=== PATIENT | male | born 1975 | race Hispanic/Latino ===

== ENCOUNTER 2020-12-26 07:36 | Day surgery (SDC) | payer OTHER ==
[2020-12-26] MEDS ORDERED: Ringers Lactate 1,000 ML IV ONE (07:42)
[2020-12-26] MEDS ORDERED: LIDOCAINE 1% MPF 5 ML VIAL ONE (08:31)
[2020-12-26] MEDS ORDERED: propofoL 200 MG/20 ML VIAL IV ONE (08:31)
--- NOTE | 2020-12-26 09:10 | ENDO RPT ---
[address], [address] COLONOSCOPY PROCEDURE REPORT EXAM DATE: 12/26/2020 PATIENT NAME: Godwin Ponce MR #: [id number] BIRTHDATE: 1975 ATTENDING: Abdiel Carmichael DR STATUS: outpatient PAVER LAYER: Lolis Rodríguez RN and Evi Coronado CST INDICATIONS: The patient is a 45 yr old Male here for a colonoscopy due to colon cancer screening PROCEDURE PERFORMED: Colonoscopy with biopsy - cold polypectomy MEDICATIONS: Per Anesthesia. ESTIMATED BLOOD LOSS: None CONSENT: The patient understands the risks and benefits of the procedure and understands that these risks include, but are not limited to: sedation, allergic reaction, infection, perforation and/or bleeding. Alternative means of evaluation and treatment include, among others: physical exam, x-rays, and/or surgical intervention. The patient elects to proceed with this endoscopic procedure. DESCRIPTION OF PROCEDURE: During intra-op preparation period all mechanical medical equipment was checked for proper function. Hand hygiene and appropriate measures for infection prevention was taken. Procedure, possible complications, alternatives including, but not limited to possibility of bleeding, perforation, tear, infection, sepsis, need for surgery, need for blood transfusion, were explained to the patient. After the risks, benefits and alternatives of the procedure were thoroughly explained, Informed consent was verified, confirmed and timeout was successfully executed by the treatment team. The patient was placed in the left lateral position. A digital rectal exam was performed and revealed internal hemorrhoids. After appropriate level of anesthesia, the scope was passed. The EC-[id number] ([id number]) endoscope was introduced through the anus and advanced to the cecum, which was identified by both the appendix and ileocecal valve. The quality of the prep was fair. The instrument was then slowly withdrawn as the colon was fully examined. Scope withdrawal time was 10 minutes. COLON FINDINGS: A smooth sessile polyp ranging between 3-5mm in size with a mucous cap was found in the sigmoid colon. A polypectomy was performed with cold forceps. The resection was complete, the polyp tissue was completely retrieved and sent to histology. Retroflexed views revealed no abnormalities. The scope was then completely withdrawn from the patient and the procedure terminated. ADVERSE EVENTS: There were no complications. IMPRESSIONS: 1. Sessile polyp ranging between 3-5mm in size was found in the sigmoid colon; polypectomy was performed in a piecemeal fashion with cold forceps 2. Internal hemorrhoids RECOMMENDATIONS: 1. avoid NSAIDS for 2 weeks 2. await biopsy results 3. fiber rich diet 4. follow-up: office 2 week(s) 5. Monitor for any evidence of rectal bleeding. 6. yearly hemoccult starting in 4 years 7. hemorrhoidal hygiene RECALL: for Colonoscopy, pending biopsy results. Abdiel Carmichael DR eSigned: Abdiel Carmichael DR 12/26/2020 9:09 AM cc: CPT CODES: ICD9 CODES: PATIENT NAME: Godwin PonceRocio MR#: [id number]
[2020-12-26 09:46] VITALS: TEMP 97.4; O2SAT 98
[2020-12-26 09:47] VITALS: BP 108/60
== END 2020-12-26 09:45 | disposition home or self-care (01) ==
LOC: OR 07:36
PROVIDERS: ATTEND Surgery
PROC: 0DBN8ZX Excision of Sigmoid Colon, Via Natural or Artificial Opening Endoscopic, Diagnostic (ICD-10-PCS; principal; 2020-12-26 08:30)
DX: Z12.11 Encounter for screening for malignant neoplasm of colon (principal); Z20.822 Contact with and (suspected) exposure to COVID-19; K63.5 Polyp of colon; K64.8 Other hemorrhoids
CPT/HCPCS: 88305; 45380; U0003; J2704; J7120

== ENCOUNTER 2021-04-03 17:07 | Emergency (ER) | payer OTHER ==
--- OUTSIDE RECORDS SUMMARY | 2021-04-03 17:09 | XMS REPORT | Continuity of Care Document ---
:1975 Author Organization [facility] t Address [address] [place] [address] Care Team Providers Name Role Phone KACI Attending Clinician Unavailable Lab, Fam Pob I Attending Clinician Unavailable Jon Patel Attending Clinician Jon DOS SANTOS Attending Clinician Unavailable Doctor Unassigned, Name Attending Clinician Unavailable Payers Payer Name Policy Type Policy Number Effective Date Expiration Date Radames dennis [employer] CHOICE POS [id number] 2018 00:00:00 II Problems This patient has no known problems. Allergies, Adverse Reactions, Alerts Allergy Allergy Status Severity Reaction(s) Onset Inactive Treating Comm ents Source Name Type Date Date Clinician NO KNOWN Drug Active [facility] ALLERGIE Class it of [facility] Social History Social Habit Start Date Stop Date Quantity Comments Source Exposure to SARS-CoV-2 [facility] sure [facility] Sex Assigned At [facility] Smoking Status Start Date Stop Date Source Unknown if ever smoked [facility] Medications This patient has no known medications. Procedures This patient has no known procedures. Encounters Start End Encounter Admission Attending Care Care Encounter Source Date/Time Date/Time Type Type Clinicians Facility Department ID 2020-03-04 2020-03-04 Outpatient R [facility] [id number] Univers 13:00:00 13:00:00 [id number] [facility] 2020-03-04 2020-03-04 Outpatient R KACI [facility] [id number] Univers 13:00:00 13:00:00 TED [facility] 2020-03-03 2020-03-03 Laboratory Lab, Adc Fam Pob I [facility] [id number] Univers 10:27:04 10:47:04 Only Kaela Dos Santos [id number] ity of [place] [id number] [place] as Professio [phone] [address] 2020-03-03 2020-03-03 Outpatient R SHANNAN, [facility] [id number] Univers 10:20:00 10:20:00 KAELA [facility] 2020-03-03 2020-03-03 Letter Doctor JOSE [id number] Univers 00:00:00 00:00:00 (Out) Unassigned, MORE [id number] [facility] of [facility] [id number] [place] as [phone] [address] 2020-03-03 2020-03-03 Letter Doctor JOSE [id number] Univers 00:00:00 00:00:00 (Out) Unassigned, MORE [id number] [facility]y of [place] [id number] [place] as [phone] [address] 2020-03-03 2020-03-03 Letter Doctor JOSE [id number] Univers 00:00:00 00:00:00 (Out) Unassigned, MORE [id number] it[facility] of [facility] [id number] [place] [phone] [address] Results This patient has no known results.
[2021-04-03 17:47] LABS: Absolute Lymphocytes (CBC) 1.9 K/uL (0.7-4.9); Hematocrit 45.9 % (39.6-49.0); Lymphocytes % 18.5 % (15.3-44.8); MPV 9.4 fL (7.6-11.3); RBC Red Blood Cell Count 5.41 M/uL (4.33-5.43)
[2021-04-03 18:04] LABS: ALT/SGPT 38 U/L (12-78); AST/SGOT 19 U/L (15-37); Albumin 4.3 g/dL (3.4-5.0); Alkaline Phosphatase 70 U/L (45-117); BUN Blood Urea Nitrogen 15 mg/dL (7-18); Bicarbonate 26 mmol/L (21-32); Bilirubin Direct < 0.1 mg/dL (0-0.2); Bilirubin Total 0.4 mg/dL (0.2-1.0); Glucose Level 96 mg/dL (74-106); Lipase 117 U/L (73-393); Potassium 3.9 mmol/L (3.5-5.1); Sodium Level 139 mmol/L (136-145)
[2021-04-03] MEDS ORDERED: ONDANSETRON 4 MG/2 ML VIAL ONE (18:15)
[2021-04-03] MEDS ORDERED: MORPHINE 4 MG/ML SYR ONE (18:15)
--- NOTE | 2021-04-03 18:53 | RAD REPORT ---
EXAM DESCRIPTION: US - Abdomen Exam Limited - 04/03/2021 6:38 pm CLINICAL HISTORY: Abdominal pain. COMPARISON: None. FINDINGS: The gallbladder wall is not thickened. A gallstone is not seen. Borderline dilatation common bile duct IMPRESSION: Borderline dilatation common bile duct. This should be correlated with appropriate liver function alpesh t enzymes
--- NOTE | 2021-04-03 19:08 | ER ---
Nurse's Notes [facility] Name: Godwin Ponce Age: 45 yrs Sex: Male : 1975 Arrival Date: 04/03/2021 Time: 17:11 Bed 6 Private MD: Diagnosis: Upper abdominal pain, unspecified Presentation: 04/03 17:15 Chief complaint: Patient states: Upper abdominal pain since this morning, denies N/V/D ph or fever. Pt collapsed attempting to get out of chair at registration, stated it was d/t pain, A\T\O x 4. Coronavirus screen: Vaccine status: Patient reports receiving the 2nd dose of the covid vaccine. Ebola Screen: No symptoms or risks identified at this time. Initial Sepsis Screen: Does the patient meet any 2 criteria? No. Patient's initial sepsis screen is negative. Does the patient have a suspected source of infection? No. Patient's initial sepsis screen is negative. Risk Assessment: Do you want to hurt yourself or someone else? Patient reports no desire to harm self or others. Onset of symptoms was April 03, 2021. 17:15 Method Of Arrival: Wheelchair ph 17:15 Acuity: BERNICE 3 ph Historical: - Allergies: 17:17 No Known Allergies; ph - PMHx: 17:17 None; ph - PSHx: 17:17 None; ph - Immunization history:: Adult Immunizations unknown. - Social history:: Smoking status: Patient denies any tobacco usage or history of. Screenin:18 Abuse screen: Denies threats or abuse. Denies injuries from another. Nutritional ww screening: No deficits noted. Tuberculosis screening: No symptoms or risk factors identified. Fall Risk None identified. Assessment: 17:45 General: Appears uncomfortable, Behavior is cooperative, anxious. Pain: Complains of ww pain in epigastric area, right upper quadrant and left upper quadrant. Neuro: Level of Consciousness is awake, alert, obeys commands, Oriented to person, place, time, situation, Moves all extremities. Full function Gait is Speech is normal. Cardiovascular: Capillary refill < 3 seconds Patient's skin is warm and dry. Respiratory: Airway is patent Respiratory effort is even, unlabored, Respiratory pattern is regular, symmetrical. GI: Abdomen is non-distended, Abdomen is tender to palpation in epigastric area, right upper quadrant and left upper quadrant Reports upper abdominal pain, cramping, nausea. : No signs and/or symptoms were reported regarding the genitourinary system. Derm: Skin is intact, is healthy with good turgor, Skin is pink, warm \T\ dry. 19:25 GI: Bowel sounds present X [address]1 Vital Signs: 17:15 BP 154 / 72; Pulse 74; Resp 22; Temp 98.2; Pulse Ox 100% on R/A; Weight 122.47 kg; ph Height 6 ft. 2 in. (187.96 cm); 18:57 BP 132 / 85; Pulse 79; Resp 18; Pulse Ox 99% on R/A; ww 19:24 BP 132 / 90; Pulse 74; Resp 16; Pulse Ox 97% on R/A; st1 17:15 Body Mass Index 34.67 (122.47 kg, 187.96 cm) ph ED Course: 17:11 Patient arrived in ED. kc5 17:17 Triage completed. ph 17:17 Arm band placed on Patient placed in an exam room. ph 17:21 Kike Brady PA is PHCP. jr8 17:21 Basim Mahoney MD is Attending Physician. jr8 17:30 Patient has correct armband on for positive identification. Placed in gown. Bed in low ww position. Call light in reach. Side rails up X 1. Adult w/ patient. laboratory monitor on. Pulse ox on. NIBP on. 17:30 Inserted saline lock: 20 gauge in right antecubital area, using aseptic technique. ww Blood collected. 18:38 US Abdomen Limited In Process Unspecified. EDMS 19:24 No provider procedures requiring assistance completed. Inserted IV discontinued, st1 intact, bleeding controlled, No redness/swelling at site. Pressure dressing applied. 19:28 Nicoalsa Albarran is Primary Nurse. tk1 Administered Medications: 18:15 Drug: Zofran (Ondansetron) 4 mg Route: IVP; Site: right antecubital; ww 18:18 Drug: morphine 4 mg Route: IVP; Site: right antecubital; ww 19:21 Drug: Dicyclomine 20 mg Route: IM; Site: left gluteus; st1 Outcome: 19:08 Discharge ordered by . jr8 19:24 Discharged to home ambulatory, with family. st1 19:24 Condition: stable 19:24 Discharge instructions given to patient, Instructed on discharge instructions, follow up and referral plans. medication usage, Demonstrated understanding of instructions, follow-up care, medications, Prescriptions given X 2. 19:39 Patient left the ED. st1 Signatures: Dispatcher [employer] EDMS Kike Brady PA PA jr8 Penelope Thayer RN RN Mahnaz Mendoza kc5 Mamta Weinberg RN RN Nicolasa Lynch tk1 Dacia Torres RN RN st1
--- NOTE | 2021-04-03 19:09 | EDPHYS ---
Physician Documentation [facility] Name: Godwin Ponce Age: 45 yrs Sex: Male : 1975 Arrival Date: 04/03/2021 Time: 17:11 Bed 6 Private MD: ED Physician Basim Mahoney HPI: 04/03 18:08 This 45 yrs old Male presents to ER via Wheelchair with complaints of jr8 Abdominal Pain. 18:08 The patient presents with abdominal pain in the upper abdomen. Onset: The jr8 symptoms/episode began/occurred acutely, today. The symptoms do not radiate. Associated signs and symptoms: Pertinent positives: nausea. The symptoms are described as crampy. Modifying factors: The symptoms are alleviated by nothing, the symptoms are aggravated by nothing. Severity of pain: At its worst the pain was moderate in the emergency department the pain is unchanged. The patient has not experienced similar symptoms in the past. The patient has not recently seen a physician. Historical: - Allergies: 17:17 No Known Allergies; ph - PMHx: 17:17 None; ph - PSHx: 17:17 None; ph - Immunization history:: Adult Immunizations unknown. - Social history:: Smoking status: Patient denies any tobacco usage or history of. ROS: 18:08 Eyes: Negative for injury, pain, redness, and discharge, ENT: Negative for injury, jr8 pain, and discharge, Neck: Negative for injury, pain, and swelling, Cardiovascular: Negative for chest pain, palpitations, and edema, Respiratory: Negative for shortness of breath, cough, wheezing, and pleuritic chest pain, Back: Negative for injury and pain, MS/Extremity: Negative for injury and deformity, Skin: Negative for injury, rash, and discoloration, Neuro: Negative for headache, weakness, numbness, tingling, and seizure. 18:08 Abdomen/GI: Positive for abdominal pain, nausea, Negative for vomiting, diarrhea, abdominal distension. Exam: 18:08 Constitutional: This is a well developed, well nourished patient who is awake, alert, jr8 and in no acute distress. Cardiovascular: Regular rate and rhythm with a normal S1 and S2. No gallops, murmurs, or rubs. Normal PMI, no JVD. No pulse deficits. Respiratory: Lungs have equal breath sounds bilaterally, clear to auscultation and percussion. No rales, rhonchi or wheezes noted. No increased work of breathing, no retractions or nasal flaring. Back: No spinal tenderness. No costovertebral tenderness. Full range of motion. Skin: Warm, dry with normal turgor. Normal color with no rashes, no lesions, and no evidence of cellulitis. MS/ Extremity: Pulses equal, no cyanosis. Neurovascular intact. Full, normal range of motion. Neuro: Awake and alert, GCS 15, oriented to person, place, time, and situation. Cranial nerves II-XII grossly intact. Motor strength 5/5 in all extremities. Sensory grossly intact. 18:08 Abdomen/GI: Inspection: obese Bowel sounds: active, all quadrants, Palpation: soft, in all quadrants, moderate abdominal tenderness, in the epigastric area and left upper quadrant, mass, is not appreciated, rebound tenderness, is not appreciated, voluntary guarding, is not appreciated, involuntary guarding, is not appreciated, no appreciated organomegaly, Indicators: McBurney's point is not tender, Pearce's sign is negative, Rovsing's sign is negative, Liver: tenderness, is not appreciated. Vital Signs: 17:15 BP 154 / 72; Pulse 74; Resp 22; Temp 98.2; Pulse Ox 100% on R/A; Weight 122.47 kg; ph Height 6 ft. 2 in. (187.96 cm); 18:57 BP 132 / 85; Pulse 79; Resp 18; Pulse Ox 99% on R/A; ww 19:24 BP 132 / 90; Pulse 74; Resp 16; Pulse Ox 97% on R/A; st1 17:15 Body Mass Index 34.67 (122.47 kg, 187.96 cm) ph MDM: 17:21 Patient medically screened. jr8 19:07 Data reviewed: vital signs, nurses notes, lab test result(s), radiologic studies, jr8 ultrasound. Data interpreted: Pulse oximetry: on room air is 99 %. Interpretation: normal. Counseling: I had a detailed discussion with the patient and/or guardian regarding: the historical points, exam findings, and any diagnostic results supporting the discharge/admit diagnosis, lab results, radiology results, the need for outpatient follow up, a family practitioner, to return to the emergency department if symptoms worsen or persist or if there are any questions or concerns that arise at home. Response to treatment: the patient's symptoms have markedly improved after treatment. Special discussion: Based on the patient's Hx, exam, and Dx evaluation, there is no indication for emergent surgery or inpatient Tx. It is understood by the patient/guardian that if the Sx's persist or worsen they need to return immediately for re-evaluation. 04/03 17:22 Order name: Basic Metabolic Panel; Complete Time: 18:05 jr8 04/03 17:22 Order name: CBC with Diff; Complete Time: 18:05 8 04/03 17:22 Order name: Hepatic Function; Complete Time: 18:05 jr8 04/03 17:22 Order name: Lipase; Complete Time: 18:05 8 04/03 18:05 Order name: US Abdomen Limited; Complete Time: 18:56 8 04/03 17:22 Order name: IV Saline Lock; Complete Time: 17:38 jr8 04/03 17:22 Order name: Labs collected and sent; Complete Time: 17:38 jr8 Administered Medications: 18:15 Drug: Zofran (Ondansetron) 4 mg Route: IVP; Site: right antecubital; ww 18:18 Drug: morphine 4 mg Route: IVP; Site: right antecubital; ww 19:21 Drug: Dicyclomine 20 mg Route: IM; Site: left gluteus; st1 Disposition Summary: 04/03/21 19:08 Discharge Ordered Location: Home [facility] Problem: new jr8 Symptoms: have improved jr8 Condition: Stable jr8 Diagnosis - Upper abdominal pain, unspecified jr8 Followup: jr8 - With: Private Physician - When: 2 - 3 days - Reason: Recheck today's complaints, Continuance of care, Re-evaluation by your physician Discharge Instructions: - Discharge Summary Sheet jr8 - Abdominal Pain, Adult jr8 Forms: - Medication Reconciliation Form jr8 - Thank You Letter jr8 - Antibiotic Education jr8 - Prescription Opioid Use jr8 Prescriptions: - Zofran 4 mg Oral Tablet - take 1 tablet by ORAL route every 12 hours As needed; 20 tablet; Refills: 0, jr8 Product Selection Permitted - dicyclomine 20 mg Oral Tablet - take 1 tablet by ORAL route 3 times per day As needed; 21 tablet; Refills: 0, jr8 Product Selection Permitted Signatures: Dispatcher [employer] Kike Dunlap PA PA jr8 Penelope Thayer RN RN [facility], Mamta RN RN Dacia Torres RN RN st1
[2021-04-03] MEDS ORDERED: DICYCLOMINE HCL 10 MG CAP ONE (19:22)
[2021-04-03] MEDS ORDERED: DICYCLOMINE HCL 20 MG/2 ML AMP IM ONE (19:23)
[2021-04-03 20:16] VITALS: TEMP 98.2
[2021-04-03 20:19] VITALS: BP 132/90; O2SAT 97
== END 2021-04-03 19:39 | disposition home or self-care (01) ==
LOC: ER 17:07
DX: R10.10 Upper abdominal pain, unspecified (principal); I10 Essential (primary) hypertension; F41.8 Other specified anxiety disorders; Z88.5 Allergy status to narcotic agent; Z88.8 Allergy status to other drugs, medicaments and biological substances; Z95.0 Presence of cardiac pacemaker
CPT/HCPCS: 85025; 80048; 36415; 80076; 83690; 76705; 96375; 96372; 96374; 99284; J0500; J2405